=== PATIENT | male | born 1965 | race African-American/Black ===

== ENCOUNTER 2017-02-06 10:38 | Inpatient (IN) ==
[~2017-02-06 10:38] MED LIST: ASPIRIN 325 MG TABLET ONE; ENOXAPARIN 80 MG/0.8 ML SYRINGE SUBCUT ONE; METOPROLOL TARTRATE 5 MG/5 ML VIAL IV ONE; MORPHINE 2 MG/1 ML SYRINGE ONE; NITROGLYCERIN 2% OINT 1 INCH/GM PACK TOP ONE; ONDANSETRON 4 MG/2 ML VIAL ONE; TICAGRELOR 90 MG TABLET ONE
[2017-02-06] MEDS ORDERED: LIDOCAINE 1% 20 ML VIAL ONE (10:41)
[2017-02-06] MEDS ORDERED: HEPARIN/NACL 0.9% 2 UNITS/ML 1,000 ML IV ONE (10:41)
--- NOTE | 2017-02-06 10:41 | Emergency Department Note ---
Nini Mejias Gwan, am scribing for, and in the presence of, Jaime Simmons MD 10:39 . Iris Mejias James D, MD, personally performed the services described in this documentation, ascribed by Pinky Terrazas in my presence, and it is both accurate and complete . Arrival - Arrival Chief Complaint: Chest Pain Stated Complaint: cp Mode of Arrival: Stretcher Source: EMS, Old Records Reviewed, RN Notes Reviewed - History of Present Illness HPI Narrative: Pt is a 51 y/o male who presents to the ED via EMS for further evaluation of chest pain. EMS was called to pt's residence and En Route pt went into Vfib and was shocked once. Initial evaluation by paramedics revealed the patient to be in bigeminy. He subsequently deteriorated to V. fib where he was cardioverted with 200 J. Patient responded well with return to normal sinus rhythm. Patient was awake and alert during exam. Patient stated that his pain began at 0930 and he continued that his sxs worsened and included N/V and diaphoresis. He then said that he has had this pain intermittent for the past 2 weeks and he assumed that it was because of the food he has been eating. Patient has a SHx of 1ppd cigarettes and that he drinks beer and Vodka daily. He denies having a local PCP. He has a significant history of family coronary artery disease. Onset (ago): week(s) Consistency: intermittent Severity: severe Allergies/Adverse Reactions: Allergies Allergy/AdvReac Type Severity Reaction Status Date / Time benzocaine [From Dermacot] Allergy Vomiting Verified 10/28/16 18:51 pyrilamine [From Dermacot] Allergy Vomiting Verified 10/28/16 18:51 zinc oxide [From Dermacot] Allergy Vomiting Verified 10/28/16 18:51 Home Medications: Home Medications Medication Instructions Recorded Confirmed Type Cyclobenzaprine [Flexeril] 10 mg PO TID #21 tablet 07/15/15 Rx HYDROcodone/ACETAMIN 5-325 [Loving 1 tablet PO Q6H #20 tablet 07/15/15 Rx 5-325] Naproxen [Naproxen Tab] 500 mg PO BID W/MEALS #30 tablet 07/15/15 Rx Sulfameth/Trimeth 800-160 Tab 1 tablet PO BID 07/15/15 07/15/15 History [Bactrim DS Tab] Sulfameth/Trimeth 800-160 Tab 1 tablet PO BID #14 tablet 10/28/16 Rx [Bactrim Ds Tab] Review of System - Review of System 12 point system: reviewed and no additional remarkable complaints except as stated - Review of System Constitutional: Absent: chills, fever Eyes: Absent: discharge, pain Head/Ears/Nose/Throat: Absent: earache Cardiovascular: Present: as per HPI, chest pain Gastrointestinal: Present: as per HPI, nausea, vomiting. Absent: diarrhea Medical,Surgical,& Family Hx - Medical History Cardio: History of: Hypertension - Family History Family History: Reports;: Family Heart Disease - Social History Smoking Status: Current every day smoker (1 pack per day) Have you smoked in the last 12 months: Yes Frequency of Alcohol Use: Frequently Type of Drug Use: None Marital Status: Lives With:: Spouse Functional capacity: independent ambulation Exam Physical Examination: GENERAL: This is acutely ill-appearing slightly diaphoretic black male in no apparent distress. VITAL SIGNS: HEENT: Head is normocephalic and atraumatic. Pupils are equally round and reactive to light. Extraocular movement are intact. Oropharynx is benign with moist mucous membranes. NECK: Neck is soft and supple without tenderness. There are no masses. There is no lymphadenopathy. LUNGS: Lungs are clear to auscultation bilaterally. Chest rises symmetrically. There is no chest wall tenderness. CV: Heart is regular rate and rhythm without murmurs, rubs, or gallops. ABDOMEN: Abdomen is soft, non-tender to palpation. There are no abnormal masses palpated. There is no organomegaly. Bowel sounds are present and active. SKIN: Skin is warm and dry. No rash. EXTREMITIES: Patient has full range of motion without tenderness. There is no pedal edema. NEUROLOGIC: Awake, alert, and oriented x4. Cranial nerves II through XII are grossly intact. There are no motorsensory deficits. PSYCHIATRIC: Normal affect. Normal mood. Vital Signs: Vital Signs Temperature 96.3 F L 02/06/17 10:26 Pulse Rate 97 H 02/06/17 10:26 Respiratory Rate 24 02/06/17 10:26 Blood Pressure 190/103 02/06/17 10:26 O2 Sat by Pulse Oximetry 99 02/06/17 10:26 Course Course Narrative: Patient was given metoprolol 5 mg IV, aspirin, Lovenox 70 mg subcu, morphine, Zofran, and Brilinta 180 mg p.o. prior to transport to the [facility]. - Consultations Consultation #1: Discussed with Dr. Natarajan. Patient will be taken emergently to the [facility]. Time: 10:41 Results - EKG EKG results: interpreted by ERMD - Impressions EKG: Normal sinus rhythm with a rate of 94, ST segment elevation in V2 V3 V4 V5 and V6 consistent with large anterior lateral NM. Review of paramedics strips obtained in the field revealed patient had multifocal PVCs quickly followed by Oswaldo colmenares. Patient was cardioverted with 200 J and returned to sinus rhythm. Disposition Clinical Impression: Acute ST elevation myocardial infarction involving left anterior descending coronary artery, Ventricular fibrillation by electrocardiogram Case discussed with: patient Disposition: Still a Patient Condition: Critical Time of Disposition: 10:41
[2017-02-06] MEDS ORDERED: HEPARIN/NACL 0.9% 2 UNITS/ML 500 ML IV ONE (10:42)
[2017-02-06] MEDS ORDERED: MIDAZOLAM 2 MG/2 ML VIAL ONE (10:43)
[2017-02-06] MEDS ORDERED: HYDROmorphone 2 MG/1 ML VIAL ONE (10:43)
[2017-02-06] MEDS ORDERED: ONDANSETRON 4 MG/2 ML VIAL IV STA (10:52)
[2017-02-06] MEDS ORDERED: MORPHINE 2 MG/1 ML SYRINGE IV STA (10:52)
[2017-02-06] MEDS ORDERED: METOPROLOL TARTRATE 5 MG/5 ML VIAL IV STA (10:52)
[2017-02-06] MEDS ORDERED: ASPIRIN 325 MG TABLET PO STA (10:52)
[2017-02-06] MEDS ORDERED: TICAGRELOR 90 MG TABLET PO ONE (10:53)
[2017-02-06] MEDS ORDERED: ENOXAPARIN 80 MG/0.8 ML SYRINGE SUBCUT STA (10:53)
--- NOTE | 2017-02-06 10:57 | EKG Report ---
Stationary ECG Study [facility] ER Test Date: 02/06/2017 10:30:40 AM Pat Name: CRYSTAL JIN Department: Room: C002 Gender: M Immigration Manager: : 1965 Requested by: Jaime Carl Order Number: [id number] Reading MD: JACQUELIN MARCOS Intervals [place] Rate: 94 P: 76 TX: 137 QRS: 123 QRSD: 89 T: 84 QT: 376 QTc: 428 Interpretive Statements SINUS RHYTHM MARKED RIGHT AXIS DEVIATION MODERATE T-WAVE ABNORMALITY, CONSIDER ANTEROLATERAL ISCHEMIA Electronically Signed On 02-06-17 11:59:55 CDT by JACQUELIN MARCOS [email or web address]
[2017-02-06 11:09] LABS: Basophils # 0.1 10*3/uL (0.0-0.2); Basophils % 0.5 % (0.0-0.8); Eosinophils # 0.1 10*3/uL (0.0-0.87); Hemoglobin 14.5 GM/DL (14.0-18.0); Immature Granulocytes % 1.3 %; Immature Granulocytes Absolute 0.16 #; Lymphocytes # 6.6 10*3/uL (1.4-4.0); Lymphocytes % 52.9 % (21.2-54.2); Mean Corpuscular HGB Conc 30.9 GM/DL (32-36); Mean Corpuscular Hemoglobin 24 PG (27-34); Mean Corpuscular Volume 78.2 FL (87-102); Mean Platelet Volume 11.5 FL (9.6-12.0); Monocytes % 7.6 % (1.7-12.7); NRBC # 0.05 10*3/uL; Neutrophils # 4.6 10*3/uL (1.4-7.4); Neutrophils % 36.7 % (38.7-73.9); Platelet Count 242 T/CUMM (130-400); Red Blood Count 6.01 MC/CUMM (3.8-5.5); White Blood Count 12.4 T/CUMM (4-12)
[2017-02-06 11:14] LABS: PT Patient Result 10.8 SECS; Partial Thromboplastin Time 25.8 SECS (0-40)
[2017-02-06 11:22] LABS: Albumin 4.6 G/DL (3.4-5.0); Calcium 9.7 MG/DL (8.5-10.1); Magnesium 2.1 MG/DL (1.8-2.4); Osmolality,Calculated 286.1 MOS/KG (273-304); Potassium 3.5 MMOL/L (3.5-5.1); Total Protein 8.2 G/DL (6.4-8.3)
--- NOTE | 2017-02-06 11:30 | Cardiac Catheterization ---
Date of Procedure:: 02/06/17 Procedure: CLINICAL SUMMARY: The patient presented with chest pain, dyspnea, and syncope/ presyncope with ventricular fibrillation. He underwent emergent defibrillation. His EKG showed changes suggestive of an acute anterior myocardial infarction. He is being taken emergently to cardiac catheterization from the emergency room. PROCEDURES PERFORMED: 1. Right femoral percutaneous arteriotomy 2. Left heart catheterization. 3. Resting hemodynamics. 4. Left ventriculography. 5. Coronary arteriography. 6. Right femoral arteriogram. 7. Angio-Seal closure of the right femoral artery. DESCRIPTION OF PROCEDURE: After obtaining informed consent, the patient was brought to the cardiac catheterization lab where the right groin was prepped and draped in the usual sterile manner. Using IV sedation, local anesthesia, and Modified Seldinger technique, a needle was placed in the right femoral artery and a sheath was positioned without difficulty. A left coronary catheter was advanced over a guidewire under fluoroscopic control to the ascending aorta where angiograms of the left coronary artery were undertaken in multiple views. After adequate angiograms, this catheter was withdrawn and a right coronary catheter was advanced over a guidewire under fluoroscopic control to the ascending aorta with angiograms of the RCA were undertaken in numerous projections. After adequate angiograms, this catheter was removed and a pigtail ventriculographic catheter was advanced over a guidewire under fluoroscopic control to the aortic valve and left ventricular pressures were measured. After adequate pressures were measured, this catheter was used to perform left ventriculography in the STAHL projection. This catheter was then withdrawn under hemodynamic monitoring and removed from the patient. A right femoral arteriogram was performed showing adequate sheath placement for closure device deployment. The sheath was then removed and an Angio-Seal device was used to obtain hemostasis. The patient was transferred back to the room having suffered no immediate complications. HEMODYNAMICS: See the accompanying data sheet. CORONARY ARTERIOGRAPHY: LEFT MAIN: The left main coronary artery is a large caliber vessel, which trifurcates into the left anterior descending and ramus intermedius, and and left circumflex coronary arteries. The left main coronary artery has no significant obstructive disease. LEFT CIRCUMFLEX: The left circumflex coronary artery is a moderate size vessel which gives off a moderate size branching obtuse marginal. The left circumflex and its tributaries are angiographically free of significant obstructive disease. RAMUS INTERMEDIUS: This is a moderate size vessel which courses over the anterolateral wall and is angiographically free of significant obstructive disease. LEFT ANTERIOR DESCENDING: The left anterior descending artery is a moderate size vessel which gives off 2 moderate-sized diagonal branches. The vessel wraps far around the apex. Left anterior descending has mild luminal irregularities but no significant focal obstruction is seen. RIGHT CORONARY ARTERY: The right coronary artery is a moderate size vessel was a posterior descending artery and a small posterolateral branch. The right coronary artery has mild luminal regular is but no significant focal obstructive disease. LEFT VENTRICULOGRAPHY: Left ventricular ejection fraction is estimated at 50-55 %. PERIPHERAL ARTERIOGRAPHY: Right femoral arteriogram shows a normal right iliofemoral artery with adequate sheath placement for closure device deployment. IMPRESSIONS: 1. There is no significant obstructive coronary artery disease seen at this time. 2. Left ventricle systolic function is preserved. 3. Normal right iliofemoral artery with successful and distal closure of this vessel. PLAN: At this point, it does not appear that the patient actually has an acute coronary syndrome. The etiology of his ventricular fibrillation, chest pain, and dyspnea remains unclear. I'm going to try to rule out pulmonary embolus. I will get an echocardiogram to rule out structural cardiac abnormality that might explain his arrhythmia. His labs are still pending. He has been "experimenting" with some medications such as Adderall, Lortab, and alcohol recently. This possible this could play a role in his presentation. I discussed his case with the hospital medicine team to see if they would be willing to admit him to evaluate for other medical issues, while we continue to evaluate his cardiac status. Anesthesia: minimal conscious sedation Surgeon / Physician: Nicola Natarajan Estimated blood loss: minimal Condition: stable Disposition: floor - Medications / Follow-up
[2017-02-06 11:34] LABS: Band Neutrophils 2 % (0-10); Eosinophils 4 % (0-10); Hypochromasia 1+; Lymphocytes 51 % (20-55); Nucleated Red Blood Cells 1 (0-5); Segmented Neutrophils 40 % (50-85); Total Cells Counted 100
[2017-02-06 11:35] LABS: Microcytosis 1+; Ovalocytes Few; Platelet Estimate Adequate
--- NOTE | 2017-02-06 13:51 | EKG Report ---
Stationary ECG Study [facility] Test Date: 02/06/2017 1:51:02 PM Pat Name: CRYSTAL JIN Department: Room: 278 Gender: M Safety Physician: GERARD : 1965 Requested by: Jaime Carl Order Number: [id number] Reading MD: JOSE COSTELLO Intervals [place] Rate: 54 P: 65 MD: 150 QRS: 105 QRSD: 79 T: 78 QT: 438 QTc: 425 Interpretive Statements SINUS BRADYCARDIA MARKED RIGHT AXIS DEVIATION Electronically Signed On 02-06-17 15:16:49 CDT by JOSE COSTELLO [email or web address]
--- NOTE | 2017-02-06 15:28 | Nuclear Medicine Report ---
NM lung scan vent and per Indication: Chest pain and shortness of breath. VENTILATION/PERFUSION LUNG SCAN: Planar imaging of the lungs was obtained after the IV administration of 5 mCi technetium 99m labeled MAA, and aerosol administration of 40 mCi technetium 99m labeled DTPA. Comparison: None. Findings: Imaging limited to anterior, STAHL and [place] views. There are no perfusion defects present in the 3 projections obtained. Impression: Normal VQ scan, with imaging limited to anterior point of view. PROCEDURE INTERPRETED AT [facility] [place] DEPARTMENT OF RADIOLOGY Final Report Signed by: Senthil Galan M.D.
--- NOTE | 2017-02-06 15:31 | XRay Report ---
Referring Physician: Tiffanie Natarajan MD Exam: XR chest post lung scan Date: February 06, 2017 at 2:20 PM Reason: Post lung scan Comparison: None Findings: The cardiac silhouette is normal in size. No focal consolidation, pneumothorax or pleural effusion is identified. No acute osseous process is seen. Impression: No acute cardiopulmonary process is identified. PROCEDURE INTERPRETED AT [facility] DEPARTMENT OF RADIOLOGY Final Report Signed by: Dr. Murali Otero
--- NOTE | 2017-02-06 15:42 | Hospitalist History & Physical ---
Assessment and Plan (1) Emesis, persistent Status: Acute Assessment and plan: Subacute nausea with onset of repetitive emesis 24 hours prior to admission. Associated chest and epigastric pain. Current Visit: Yes History of Present Illness History of present illness: Mr. Hughes is a 51 year old male with a two week history of lower sternal discomfort particularly in the mornings with periods of nausea. Sunday for the first time he had emesis progressing to wretching. Vomiting gave him some relief and did flatus. He had no observed GI bleeding though he has often had to use over the counter acid suppressants. He has noted some reduction in exercise tolerance without wheezing or pleurisy, cough, fever, or chills. He works at a [employer] with a commute of about 20 miles per day. He drives a truck on site. Her reports some cramping in his left leg but no observed swelling. This morning the patient was unable to stop vomiting; EMS was contacted. He had chest pain after emesis and received a sublingual nitroglycerin. Shortly thereafter he became unresponsive and was felt to be in a ventricular rhythm with cardioversion undertaken. In ER had S1S2S3 pattern with clockwise precordial rotation and possible RV strain pattern. At cardiac catheterization he demonstrated no coronary artery disease. V/Q scan was undertaken and report is pending. The pattern suggests a NTG hypotensive/bradycardic response, either due to volume contraction, intrinsic right sided disease, agree need to exclude PTE syndrome as source for extreme RV volume sensitivity. Home Medications Medication Instructions Recorded Confirmed Type No Known Home Medications [No 02/06/17 02/06/17 History Known Home Medications] Allergies Allergy/AdvReac Type Severity Reaction Status Date / Time benzocaine [From Dermacot] Allergy Vomiting Verified 10/28/16 18:51 pyrilamine [From Dermacot] Allergy Vomiting Verified 10/28/16 18:51 zinc oxide [From Dermacot] Allergy Vomiting Verified 10/28/16 18:51 Medical,Surgical,& Family Hx - Surgical History HEENT Surgeries: Surgical HX of: Tonsilectomy & Adenoidectomy Orthopedic Surgeries: Surgical HX of;: Orthopedic Surgery (knee arthroscopic (3) , left shoulder repair), Spinal Surgery (lumbar disc) Additional Surgical History: nasal fracture - Family History Family History: Reports;: Family Heart Disease - Social History Smoking Status: Current every day smoker (1/2 to 1 ppd) Frequency of Alcohol Use: Frequently (10 to 14 beers per week with vodka) Type of Drug Use: None - Constitutional Constitutional: Absent: fever(s), weight loss - Cardiovascular Cardiovascular: Present: chest pain with activity, dyspnea on exertion. Absent : edema, orthopnea, palpitations - Respiratory Respiratory: Absent: hemoptysis, wheezing - Gastrointestinal Gastrointestinal: Present: abdominal pain, heartburn, nausea, vomiting. Absent : bloating, change in bowel habits, coffee ground emesis, diarrhea, dysphagia, hematemesis, hematochezia, melena - Genitourinary Genitourinary: Absent: hematuria - Neurological Neurological: Absent: convulsions, syncope Exam - Constitutional Vitals: Period Temp Pulse Resp BP Sys/Yusuf Pulse Ox Last 24 Hr 96.3 F-97.9 F 51-97 17-24 118-190/71-103 99-100 General appearance: normal weight, no acute distress - Neck Neck exam: Absent: lymphadenopathy, thyromegaly - Respiratory Respiratory exam: Present: clear to auscultation bilaterally. Absent: rales, rhonchi, wheezes - Cardiovascular Cardiovascular exam: Present: regular rate and rhythm, other (soft RV impulse suggested). Absent: carotid bruit, diastolic murmur, JVD, systolic murmur - GI/Abdominal GI/Abdominal exam: Present: normal bowel sounds, tenderness (epigastric diffusely). Absent: distended, organomegaly - Extremities Exam Extremities exam: Absent: edema - Neurological Exam Neurological exam: Present: alert, oriented X3 Results - Labs CBC & BMP: 02/06/17 10:39 02/06/17 10:39 Labs: MCV 78 globulin 3.1 cTnI 0 rise to 1.39 - Impressions sinus rhythm indeterminate axis with clockwise precordial rotation and right precordial T wave changes. - Diagnostic Findings Procedure: Chest x-ray: image reviewed by me (normal appearance)
[2017-02-06] MEDS ORDERED: ZALEPLON 5 MG CAPSULE PO PRN (16:02)
[2017-02-06] MEDS ORDERED: MAGNESIUM HYDROXIDE SUSP 30 ML UDCUP PO PRN (16:03)
[2017-02-06] MEDS ORDERED: ONDANSETRON 4 MG/2 ML VIAL IV PRN (16:04)
--- NOTE | 2017-02-06 17:45 | EKG Report ---
Stationary ECG Study [facility] Test Date: 02/06/2017 5:45:16 PM Pat Name: CRYSTAL JIN Department: Room: 278 Gender: M Manager Domestic: JAIR : 1965 Requested by: Jaime Carl Order Number: [id number] Reading MD: JOSE COSTELLO Intervals [place] Rate: 63 P: 63 [place]: 145 QRS: 102 QRSD: 86 T: 81 QT: 397 QTc: 404 Interpretive Statements SINUS RHYTHM MARKED RIGHT AXIS DEVIATION MODERATE T-WAVE ABNORMALITY, CONSIDER ANTERIOR ISCHEMIA Electronically Signed On 02-07-17 17:56:29 CDT by JOSE COSTELLO [email or web address]
[2017-02-06] MEDS: DEXT 5% NACL 0.9% KCL 20 MEQ 20 MEQ/1,000 ML BAG IV SCH (17:53)
[2017-02-06 18:10] LABS: Barbiturates Screen,Urine Negative (Negative); Benzodiazepines Screen,Urine Positive (Negative); Cannabinoid Screen,Urine Negative (Negative); Opiate Screen,Urine Positive (Negative); Phencyclidine Screen,Urine Negative (Negative)
[2017-02-06] MEDS: PANTOPRAZOLE 40 MG TABLET PO SCH (20:44)
[2017-02-07] MEDS: DEXT 5% NACL 0.9% KCL 20 MEQ 20 MEQ/1,000 ML BAG IV SCH ×5 (01:27→19:00)
[2017-02-07 02:46] LABS: Basophils % 0.3 % (0.0-0.8); Eosinophils # 0.1 10*3/uL (0.0-0.87); Eosinophils % 1.4 % (0.00-10.9); Immature Granulocytes % 0.3 %; Immature Granulocytes Absolute 0.02 #; Lymphocytes # 2.4 10*3/uL (1.4-4.0); Mean Corpuscular HGB Conc 31.6 GM/DL (32-36); Mean Corpuscular Hemoglobin 24 PG (27-34); Mean Corpuscular Volume 76.5 FL (87-102); Mean Platelet Volume 10.9 FL (9.6-12.0); Monocytes # 0.5 10*3/uL (0.11-0.8); Monocytes % 7.2 % (1.7-12.7); Neutrophils # 4.3 10*3/uL (1.4-7.4); Neutrophils % 58.8 % (38.7-73.9); Platelet Count 187 T/CUMM (130-400); Red Blood Count 4.97 MC/CUMM (3.8-5.5); Red Cell Distribution Width 14.3 % (9.3-17.3); White Blood Count 7.4 T/CUMM (4-12)
[2017-02-07 03:13] LABS: Calcium 8.4 MG/DL (8.5-10.1); Magnesium 1.9 MG/DL (1.8-2.4); Osmolality,Calculated 286.1 MOS/KG (273-304); Potassium 3.9 MMOL/L (3.5-5.1)
--- NOTE | 2017-02-07 07:38 | Hospitalist Progress Note ---
Assessment and Plan (1) Emesis, persistent Status: Acute Assessment and plan: Subacute nausea with onset of repetitive emesis 24 hours prior to admission. Associated chest and epigastric pain. Current Visit: Yes (2) Cardiac arrest Status: Acute Assessment and plan: Negative coronary angiography 02/06 Current Visit: Yes Hospitalist: Subjective Interval history: 51 yo male with abdominal pain with nausea progressing to severe pain with repetitive emesis. Initial concerns regarding cardiac ischemia lead to CCA showing no obstructive coronary disease. He did sustain a rise in cTnI level after possible NTG induced cardiac arrest with resuscitation. ECG indeterminate axis with possible RV strain/hypertrophy pattern, V/Q lung scan is read as limited but negative. Echocardiogram for pulmonary hypertension is pending. Vitals stable over night with sinus rhythm. No pain this morning no nausea. Will go ahead with gall bladder ultrasound to begin GI evaluation. Exam - Constitutional Vitals: Period Temp Pulse Resp BP Sys/Yusuf Pulse Ox Last 24 Hr 96.3 F-98.4 F 51-97 17-24 118-190/69-103 97-100 General appearance: normal weight, no acute distress - Respiratory Respiratory exam: Present: clear to auscultation bilaterally - Cardiovascular Cardiovascular exam: Present: regular rate and rhythm - GI/Abdominal GI/Abdominal exam: Present: normal bowel sounds. Absent: distended, organomegaly - Extremities Exam Extremities exam: Absent: edema - Neurological Exam Neurological exam: Present: alert, oriented X3 Results - Labs CBC & BMP: 02/07/17 02:28 02/07/17 02:28 Labs: cTnI 2.49
--- NOTE | 2017-02-07 09:24 | Ultrasound Report ---
Exam: US gallbladder Date:02/07/2017 7:32 AM Indication: Abdominal pain and emesis Comparison: None Findings: Liver: 19.2 cm. No focal abnormalities are present. The hepatic and portal veins are patent Gallbladder: Slightly thickened wall with no obvious stones present. No pericholecystic fluid. CBD: 3 mm Pancreas: Normal size shape and configuration on the portion visualized Kidneys Right kidney: 10.9 x 4 x 5.9 cm with a 14 x 12 x 14 mm cyst in the upper pole the right kidney. No obstructive uropathy present. Ascites: None The IVC is patent Impression: 1. Minimal thickening of the gallbladder wall without pericholecystic fluid or obvious stones or debris. Ultrasound images were stored and captured PROCEDURE INTERPRETED AT [facility] DEPARTMENT OF RADIOLOGY Final Report Signed by: Dr. Kemar Hope
[2017-02-07] MEDS: ASPIRIN EC 81 MG TABLET PO SCH (09:29)
[2017-02-07] MEDS: PANTOPRAZOLE 40 MG TABLET PO SCH ×2 (09:29→20:51)
--- NOTE | 2017-02-07 10:23 | Cardiology Progress Note ---
<Lidia Mckoy E - Last Filed: 02/07/17 10:25> Assessment and Plan - Time spent with patient Time spent with patient: Greater than 30 minutes Time spent discussing smoking cessation with patient: more than 10 minutes (1) Cardiac arrest Status: Resolved Current Visit: Yes (2) Emesis, persistent Status: Acute Current Visit: Yes (3) Ventricular fibrillation by electrocardiogram Status: Resolved Current Visit: Yes Cardiology - PN: Subj Interval history: Sales Advisory Manager: Dr. Natarajan Patient presented to the emergency department at [facility], brought by [facility], after experiencing reported V. fib, possibly torsades, requiring defibrillation. He was taken emergently to the cardiac catheterization lab by Dr. Natarajan who performed heart cath. No evidence of obstructive disease noted. Ejection fraction 50-55% without significant valvular abnormality. Echocardiogram is unremarkable. Greater than 45 minutes was spent today discussing the events of the day with Mr. Hughes and his family. Patient was not feeling well on Sunday when he summoned EMS. He simply states he felt very weak and as if he was going to pass out. He did not have chest pain, heaviness, tightness or heart racing. He simply felt unwell. Patient acknowledges he had used 30 mg of Adderall approximately 2-3 days prior to the event. He uses Lortab for chronic back pain and had been using routinely. Patient acknowledges that he drinks several beers and usually a few shots of whiskey when he gets off work each evening. He tells me he had not been drinking at least 6-8 hours prior to this event. His drug screen did not reveal cocaine, methamphetamine or marijuana. Denies use of spice. Patient denies a family history of sudden cardiac . His mother's side of the family does have, what sounds like CAD. He denies a history of known dysrhythmias in his family including Brugada syndrome. Patient has had recent nausea and vomiting with abdominal discomfort. He has never been diagnosed with pancreatitis that he is aware of. He admits to not routinely following with a primary care provider but acknowledges that he is now ready to do so. At this point, I am requesting the actual rhythm strips from [facility] to evaluate the rhythm. If this was truly ventricular fibrillation or torsades, ventricular tachycardia, patient may become a candidate for an ICD. Again, we will await the rhythm strips from [facility]. He had no arrhythmia since he has been here. When EKG does reveal a somewhat abnormal rhythm which could be a Brugada syndrome. Conceivably, he could have a QTc prolongation problem though the EKG is borderline at this point. I briefly discussed this with Dr. Tavares who reviewed the EKG strips we have here this morning. We will await rhythm strips from [facility]. I will add LFTs, amylase and lipase for evaluation. Reordering a troponin and expect this should be trending down. His potassium is being repleted this morning. Will follow his electrolytes. I will give an additional dose of magnesium today as his magnesium level is 1.9. Patient may eventually need workup to exclude myocarditis, possibly a cardiac MRI. I will formally consult Dr. Tavares, asphalt plant worker to assist with this patient's care. 1. SUDDEN CARDIAC RELATED TO DYSRHYTHMIA - see plan of care listed above. 2. EMESIS - continue current plan of care. Exam (Progress Note) - Constitutional Vitals: Period Temp Pulse Resp BP Sys/Yusuf Pulse Ox Last 24 Hr 97.2 F-98.4 F 51-67 17-20 118-160/69-85 97-100 Exam: General: [Appears well with no apparent distress.] [Pleasant and cooperative. ] [Appears comfortable.] HEENT: [PERRL, normocephalic, atraumatic. Mucous membranes moist. No jaundice noted. Conjunctiva moist and clear, sclerae anicteric] Neck: No JVD/HJR, no thyromegaly or lymphadenopathy noted. No carotid bruit appreciated Cardiac: [Regular rate and rhythm.] [No murmur rub or gallop.] Lungs: [Clear to auscultation without accessory muscle use to assist the respiratory pattern.] Abdomen: Soft, bowel sounds normoactive. Nontender and nondistended. No abdominal bruit or thrill noted. No masses noted. Musculoskeletal: No fluid collection. Decreased range of motion is noted. Extremities: Right groin soft, free of hematoma or bruit. No clubbing, cyanosis noted. [ No edema noted.] Upper extremity pulses 2+. Lower extremity pulses 2+. Capillary refill less than 3 seconds. Skin: No unusual lesions or rashes. No skin breakdown appreciated. Neuro: Awake, alert and oriented 3. Moves all extremities well without hemiparesis or paralysis. No essential tremor is appreciated. Result/EKG - Labs CBC & BMP: 02/07/17 02:28 02/07/17 02:28 Lab Results: I have reviewed the past 24 hour labs Labs: Laboratory Results - last 24 hr 02/06/17 02/06/17 02/06/17 13:42 16:40 Unknown WBC RBC Hgb Hct MCV MCH MCHC RDW Plt Count MPV Neut % (Auto) Lymph % (Auto) Rhea % (Auto) Eos % (Auto) Baso % (Auto) Neut # (Auto) Lymph # (Auto) Rhea # (Auto) Eos # (Auto) Baso # (Auto) Immature Gran % Nucleated RBC % Immature Gran # Nucleated RBCs # Sodium Potassium Chloride Carbon Dioxide Anion Gap BUN Creatinine GFR Calculation BUN/Creatinine Ratio Glucose Calculated Osmolality Calcium Magnesium Troponin I 1.390 H D 2.490 H D Urine Opiates Screen Positive H Ur Barbiturates Screen Negative Ur Phencyclidine Scrn Negative U Amphetamine/Methamph Negative U Benzodiazepines Scrn Positive H U Cocaine Metab Screen Negative U Cannabinoids Screen Negative 02/07/17 02/07/17 02:28 02:28 WBC 7.4 D RBC 4.97 Hgb 12.0 L D Hct 38.0 L MCV 76.5 L MCH 24 L MCHC 31.6 L RDW 14.3 Plt Count 187 D MPV 10.9 Neut % (Auto) 58.8 Lymph % (Auto) 32.0 Rhea % (Auto) 7.2 Eos % (Auto) 1.4 Baso % (Auto) 0.3 Neut # (Auto) 4.3 Lymph # (Auto) 2.4 Rhea # (Auto) 0.5 Eos # (Auto) 0.1 Baso # (Auto) 0.0 Immature Gran % 0.3 Nucleated RBC % 0.0 Immature Gran # 0.02 Nucleated RBCs # 0.00 Sodium 142 Potassium 3.9 Chloride 108 H Carbon Dioxide 24 Anion Gap 13.9 BUN 17 Creatinine 1.50 H GFR Calculation 68 BUN/Creatinine Ratio 11.00 Glucose 136 H Calculated Osmolality 286.1 Calcium 8.4 L Magnesium 1.9 Troponin I Urine Opiates Screen Ur Barbiturates Screen Ur Phencyclidine Scrn U Amphetamine/Methamph U Benzodiazepines Scrn U Cocaine Metab Screen U Cannabinoids Screen - Diagnostic Findings Procedure: Chest x-ray: report reviewed by me, Ultrasound: report reviewed by me - EKG EKG results: interpreted by me EKG shows: sinus rhythm <Nicola Natarajan - Last Filed: 02/07/17 17:05> Cardiology - PN: Subj Interval history: I have seen, interviewed, examined the patient and reviewed his chart and discussed the case with the mid-level provider and agree with the plan as outlined in the note. With the patient's arrhythmia without any clear-cut coronary artery disease, I'm going to ask Dr. Tavares for a consultation. In the meantime, I think it would be appropriate to treat the patient with a calcium channel nitza in case this was spasm, and aspirin in case this was a thrombotic event. Exam (Progress Note) - Constitutional Vitals: Period Temp Pulse Resp BP Sys/Yusuf Pulse Ox Last 24 Hr 97.2 F-98.9 F 52-67 14-20 126-160/69-85 97-100 Result/EKG - Labs CBC & BMP: 02/07/17 02:28 02/07/17 02:28 Labs: Laboratory Results - last 24 hr 02/06/17 02/06/17 02/07/17 16:40 Unknown 02:28 WBC 7.4 D RBC 4.97 Hgb 12.0 L D Hct 38.0 L MCV 76.5 L MCH 24 L MCHC 31.6 L RDW 14.3 Plt Count 187 D MPV 10.9 Neut % (Auto) 58.8 Lymph % (Auto) 32.0 Rhea % (Auto) 7.2 Eos % (Auto) 1.4 Baso % (Auto) 0.3 Neut # (Auto) 4.3 Lymph # (Auto) 2.4 Rhea # (Auto) 0.5 Eos # (Auto) 0.1 Baso # (Auto) 0.0 Immature Gran % 0.3 Nucleated RBC % 0.0 Immature Gran # 0.02 Nucleated RBCs # 0.00 Sodium Potassium Chloride Carbon Dioxide Anion Gap BUN Creatinine GFR Calculation BUN/Creatinine Ratio Glucose Calculated Osmolality Calcium Magnesium Total Bilirubin Direct Bilirubin Indirect Bilirubin AST ALT Alkaline Phosphatase Total Creatine Kinase CK-MB (CK-2) Troponin I 2.490 H D Total Protein Albumin Amylase Lipase Urine Opiates Screen Positive H Ur Barbiturates Screen Negative Ur Phencyclidine Scrn Negative U Amphetamine/Methamph Negative U Benzodiazepines Scrn Positive H U Cocaine Metab Screen Negative U Cannabinoids Screen Negative 02/07/17 02/07/17 02/07/17 02:28 10:53 10:53 WBC RBC Hgb Hct MCV MCH MCHC RDW Plt Count MPV Neut % (Auto) Lymph % (Auto) Rhea % (Auto) Eos % (Auto) Baso % (Auto) Neut # (Auto) Lymph # (Auto) Rhea # (Auto) Eos # (Auto) Baso # (Auto) Immature Gran % Nucleated RBC % Immature Gran # Nucleated RBCs # Sodium 142 Potassium 3.9 Chloride 108 H Carbon Dioxide 24 Anion Gap 13.9 BUN 17 Creatinine 1.50 H GFR Calculation 68 BUN/Creatinine Ratio 11.00 Glucose 136 H Calculated Osmolality 286.1 Calcium 8.4 L Magnesium 1.9 Total Bilirubin 0.70 Direct Bilirubin 0.10 Indirect Bilirubin 0.6 AST 26 ALT 32 Alkaline Phosphatase 70 Total Creatine Kinase 563 H CK-MB (CK-2) 3.3 Troponin I 0.254 H D Total Protein 7.3 Albumin 3.8 Amylase 145 H Lipase 154.0 Urine Opiates Screen Ur Barbiturates Screen Ur Phencyclidine Scrn U Amphetamine/Methamph U Benzodiazepines Scrn U Cocaine Metab Screen U Cannabinoids Screen
[2017-02-07] MEDS ORDERED: MAGNESIUM SULF RIDER 2 GM in PREMIX 1 EACH IV ONE (10:27)
[2017-02-07 11:33] LABS: Troponin I Only 0.254 NG/ML (0.00-0.045)
[2017-02-07 11:36] LABS: Albumin 3.8 G/DL (3.4-5.0); Bilirubin,Direct 0.1 MG/DL (0.0-0.20); Bilirubin,Indirect 0.6 MG/DL (0.0-1.0); Bilirubin,Total 0.7 MG/DL (0.2-1.0); Total Protein 7.3 G/DL (6.4-8.3)
--- NOTE | 2017-02-07 15:32 | ECHO Report ---
Stanley Hughes Exam Date: 02/07/2017 09:23 Referring Physician: Technologist: Alicia Alcazar RDCS Age: 51 Ht (in): 68 Wt (lb): 165 Gender: M Exam Location: [facility] Echo Indications: Chest pain, unspecified, Dyspnea, unspecified, Nicotine dependence, cigarettes, uncomplicated BP: 138 / 76 HR: 53 Rhythm: Sinus Technical Quality: IMPRESSIONS Normal left ventricular cavity size. Left ventricular ejection fraction is estimated at 55 %. The right ventricle is normal in size and function. The right atrium is normal in size. The left atrium is normal in size. Morphologically normal mitral valve. Trace mitral valve regurgitation. Trileaflet aortic valve. No aortic valve regurgitation. Moderate tricuspid valve regurgitation. PAP45 -50 mmHG. Pulmonic valve not well visualized. Normal pericardium without effusion. Normal ascending aorta dimension. MEASUREMENTS (Male / Female) Normal Values 2D ECHO LV Diastolic Diameter PLAX 4.8 cm 4.2 - 5.9 / 3.9 - 5.3 cm LV Systolic Diameter PLAX 3.3 cm LV Fractional Shortening PLAX 31.4 % IVS Diastolic Thickness 0.9 cm 0.6 - 1.0 / 0.6 - 0.9 cm LVPW Diastolic Thickness 0.9 cm 0.6 - 1.0 / 0.6 - 0.9 cm RV Internal Dim ED PLAX 3.5 cm Aortic Root Diameter 3.2 cm LA Systolic Diameter LX 3.3 cm 3.0 - 4.0 / 2.7 - 3.8 cm DOPPLER TR Peak Velocity 330.0 cm/s TR Peak Gradient 43.6 mmHg FINDINGS Left Ventricle Normal left ventricular cavity size. Normal left ventricular wall thickness. Left ventricular ejection fraction is estimated at 55 %. Right Ventricle The right ventricle is normal in size and function. Right Atrium The right atrium is normal in size. Left Atrium The left atrium is normal in size. Mitral Valve Morphologically normal mitral valve. Trace mitral valve regurgitation. Aortic Valve Trileaflet aortic valve. No aortic valve regurgitation. Tricuspid Valve Morphologically normal tricuspid valve. Moderate tricuspid valve regurgitation. PAP45 -50 mmHG. Pulmonic Valve Pulmonic valve not well visualized. Pericardium Normal pericardium without effusion. Aorta Normal ascending aorta dimension. Brent Tariq (Electronically Signed) Final Date: 07 February 2017 15:31
[2017-02-08] MEDS: DEXT 5% NACL 0.9% KCL 20 MEQ 20 MEQ/1,000 ML BAG IV SCH ×5 (02:43→23:26)
[2017-02-08 04:30] LABS: Basophils % 0.3 % (0.0-0.8); Eosinophils # 0.1 10*3/uL (0.0-0.87); Eosinophils % 1.7 % (0.00-10.9); Hematocrit 38.2 VOL% (42.0-52.0); Immature Granulocytes % 0.5 %; Immature Granulocytes Absolute 0.03 #; Lymphocytes # 2.5 10*3/uL (1.4-4.0); Lymphocytes % 39.9 % (21.2-54.2); Mean Corpuscular HGB Conc 31.4 GM/DL (32-36); Mean Corpuscular Hemoglobin 24 PG (27-34); Mean Corpuscular Volume 77.5 FL (87-102); Mean Platelet Volume 11.4 FL (9.6-12.0); Monocytes # 0.5 10*3/uL (0.11-0.8); Monocytes % 7.1 % (1.7-12.7); Neutrophils # 3.2 10*3/uL (1.4-7.4); Neutrophils % 50.5 % (38.7-73.9); Platelet Count 179 T/CUMM (130-400); Red Blood Count 4.93 MC/CUMM (3.8-5.5); Red Cell Distribution Width 14.3 % (9.3-17.3); White Blood Count 6.3 T/CUMM (4-12)
[2017-02-08 04:53] LABS: Calcium 8.5 MG/DL (8.5-10.1)
[2017-02-08 04:54] LABS: Potassium 4.1 MMOL/L (3.5-5.1)
--- NOTE | 2017-02-08 07:56 | Hospitalist Progress Note ---
Assessment and Plan (1) Emesis, persistent Status: Acute Assessment and plan: Subacute nausea with onset of repetitive emesis 24 hours prior to admission. Associated chest and epigastric pain. Gallbladder ultrasound is unremarkable. Symptoms have not recurred during hospital stay. Current Visit: Yes (2) Cardiac arrest Status: Acute Assessment and plan: Negative coronary angiography 02/06. Echocardiogram demonstrates a peak tricuspid velocity of 3.3 m/s consistent with moderate pulmonary hypertension. Proximity of the event to the use of sublingual nitroglycerin raises the possibility of a nitroglycerin hypotensive bradycardic response with cardiac arrest. Risk of this is heightened by his previous anorexia, nausea and intense vomiting with potential volume contraction prior to the event. Current Visit: Yes Hospitalist: Subjective Interval history: 52-year-old male with abdominal pain and nausea progressing to severe pain in the abdomen with repetitive emesis EM S was called and the patient received a sublingual nitroglycerin followed shortly thereafter by some type of cardiac arrest. It is described as being ventricular fibrillation. However we have not as near as I can tell been able to obtain the actual strips. He received DC cardioversion was transported to the emergency room. He has an abnormal EKG he underwent cardiac catheterization demonstrating patent coronary arteries. His cardiac troponins did rise postevent. His EKG shows a sinus rhythm with stable rhythm throughout the stay in addition he has extreme left axis deviation of her extreme right axis deviation with clockwise precordial rotation and a possible right ventricular strain pattern over the right precordial lead. His echocardiogram shows preserved LV function with moderate pulmonary hypertension (estimated pressure of 55-60 mmHg). His gallbladder ultrasound was unremarkable and he has had no further abdominal pain or emesis during the hospital stay. He is being consult with Dr. Colindres regarding disposition. Exam - Constitutional Vitals: Period Temp Pulse Resp BP Sys/Yusuf Pulse Ox Last 24 Hr 97.3 F-98.9 F 52-68 14-20 126-143/77-103 96-100 General appearance: normal weight, no acute distress - Respiratory Respiratory exam: Present: clear to auscultation bilaterally. Absent: rales, rhonchi, wheezes - Cardiovascular Cardiovascular exam: Present: regular rate and rhythm - GI/Abdominal GI/Abdominal exam: Present: normal bowel sounds. Absent: distended, organomegaly, tenderness - Extremities Exam Extremities exam: Absent: edema - Neurological Exam Neurological exam: Present: alert, oriented X3 Results - Labs CBC & BMP: 02/08/17 03:16 02/08/17 03:16
[2017-02-08] MEDS: PANTOPRAZOLE 40 MG TABLET PO SCH ×2 (09:03→20:53)
[2017-02-08] MEDS: ASPIRIN EC 81 MG TABLET PO SCH (09:03)
--- NOTE | 2017-02-08 10:10 | Electrophysiology Consultation ---
History of Present Illness - Data of Consult Patient: new to practice Consult date: 02/08/17 Requesting Physician: Lidia Mckoy - Consult Narrative Reason for consult: VF History of present illness: Mr. Hughes is a 52 year old black male, who was seen by Dr. Natarajan during his hospital stay. History of low back pain, status post surgery. He works a demanding physical job in the [employer]. He smokes approximately a pack a day and there was a concern that he may also use some synthetic marijuana substitute. He started feeling unwell approximately 2 weeks ago, with intermittent chest discomfort. His chronic low back pain also acted up and he took an pill of Adderall to improve his pain. The chest pain worsened. He also had nausea vomiting. This happened at rest and since the pain did not resolve, he called ambulance. Initially, ventricular bigeminy was noted, he was given nitroglycerin, which improved the pain but then he developed polymorphic VT/V. fib per ambulance tracing and he was promptly defibrillated. He recovered consciousness. Cardiac catheterization showed no significant CAD, echo showed preserved ventricular function, no significant valvular abnormalities. Labs were unremarkable, he tested positive for benzos and opioids, the timing of the sample is uncertain whether it was done after he got medications from the ambulance in the ER. EKG initially showed anteroseptal repolarization changes, with borderline elevation and T-wave abnormalities, some of them were suggestive of atypical Brugada, later on, he had some peaked T waves, without significant QTc prolongation and electrolytes changes. He had borderline elevation of cardiac biomarkers. Since admission, he is feeling better, no chest pain and no significant arrhythmia. He has 4 sisters, none of them had cardiac issues. Family history is positive for CAD at mid and later age, he does not recall any family members dying suddenly at young or middle-aged. CC: Nicola Natarajan MD - Home Medications and Allergies Home Medications: Home Medications Medication Instructions Recorded Confirmed Type No Known Home Medications [No 02/06/17 02/06/17 History Known Home Medications] Allergies/Adverse Reactions: Allergies Allergy/AdvReac Type Severity Reaction Status Date / Time benzocaine [From Dermacot] Allergy Vomiting Verified 10/28/16 18:51 pyrilamine [From Dermacot] Allergy Vomiting Verified 10/28/16 18:51 zinc oxide [From Dermacot] Allergy Vomiting Verified 10/28/16 18:51 Medical,Surgical,& Family Hx - Medical History Cardio: History of: Hypertension - Surgical History Cardiac Surgeries: Sugical HX of: Cardiac Catheterization (02/06/17) HEENT Surgeries: Surgical HX of: Tonsilectomy & Adenoidectomy Orthopedic Surgeries: Surgical HX of;: Orthopedic Surgery (knee arthroscopic (3) , left shoulder repair), Spinal Surgery (lumbar disc) - Family History Family History: Reports;: Family Heart Disease - Social History Smoking Status: Current every day smoker Frequency of Alcohol Use: Frequently (10 to 14 beers per week with vodka) Type of Drug Use: None 12 point system: reviewed and no additional remarkable complaints except as stated Exam - Constitutional Vitals: Period Temp Pulse Resp BP Sys/Yusuf Pulse Ox Last 24 Hr 97.3 F-98.9 F 52-68 14-20 125-143/77-103 96-100 General appearance: normal weight, no acute distress - Head Head exam: Present: normal inspection, normocephalic - Eye Eye exam: Absent: conjunctival injection Pupils: Absent: dilated - ENT ENT exam: Present: normal external ear exam - Neck Neck exam: Present: normal inspection. Absent: tenderness, thyromegaly - Respiratory Respiratory exam: Present: clear to auscultation bilaterally. Absent: chest wall tenderness - Cardiovascular Cardiovascular exam: Present: regular rate and rhythm. Absent: gallop - GI/Abdominal GI/Abdominal exam: Present: normal bowel sounds, soft. Absent: distended - Extremities Exam Extremities exam: Present: normal inspection, normal capillary refill. Absent: edema - Back Exam Back exam: Present: normal inspection - Neurological Exam Neurological exam: Present: alert, oriented X3 - Psychiatric Psychiatric exam: Present: normal affect, normal mood - Skin Skin exam: Present: normal color, warm. Absent: cyanosis Results - Labs CBC & BMP: 02/08/17 03:16 02/08/17 03:16 Lab Results: I have reviewed the past 24 hour labs Assessment and Plan (1) Cardiac arrest Status: Acute Assessment and plan: 52-year-old black male, aborted sudden cardiac due to PVT/VF. Contributing factors may have been coronary spasm, ischemia/reperfusion, Adderall, or drug abuse, which did not show up on the standard drug screen. Post event EKG is still showed persistent repolarization changes, in the anteroseptal region, not typical for Brugada or long QT. Clinical presentation does not suggest myocarditis. -Sudden cardiac due to PVT/VF. He will need a defibrillator implant for secondary prevention, as there is no clear fully reversible etiology. We will need to screen him for genetic arrhythmia syndromes, which may help with family screening if positive. This would not affect the need for a defibrillator in his case. -He will need stress test to assess QTC changes with exercise. He will also need a procainamide challenge. -The most likely etiology is coronary vasospasm. Discussed in length to avoid smoking and drugs, including taking non-prescribed meds such as Adderall. Cardiac Rehab consult. -Start Imdur 30 mg daily, Cardizem CD 120 mg daily. Continue aspirin 81 mg daily -Check lipids, hemoglobin A1c. Blood sugars are mildly elevated since admission. -When feels fine, he may go home with a LifeVest, plan to do these procedures as an outpatient, then we can plan for defibrillator implant. Current Visit: Yes
[2017-02-08] MEDS: ISOSORBIDE MONONITRATE 30 MG TABLET PO SCH (11:29)
[2017-02-08] MEDS: DILTIAZEM CD 120 MG CAPSULE PO SCH (11:36)
--- NOTE | 2017-02-08 12:09 | Cardiology Progress Note ---
Assessment and Plan - Time spent with patient Time spent with patient: Greater than 30 minutes (1) Cardiac arrest Status: Resolved Current Visit: Yes (2) Emesis, persistent Status: Resolved Current Visit: Yes (3) Ventricular fibrillation by electrocardiogram Status: Resolved Current Visit: Yes (4) Sudden cardiac Status: Resolved Current Visit: Yes Cardiology - PN: Subj Interval history: Mr. Hughes has done well overnight. We did receive the telemetry strips identifying polymorphic ventricular tachycardia/V. fib causing sudden cardiac . Dr. Tavares has seen the patient this morning and we appreciate his assistance. Patient denies chest pain, heaviness or tightness. At this point, patient is stable for discharge when the attending is ready. We are having him fitted for LifeVest today. He will need an outpatient stress test (treadmill only) to assess his QTc interval during exercise. We will arrange for this to take place at [facility] in the next week. Patient will need a defibrillator and this will also take place in the next few weeks. Again, patient will be discharged home with a LifeVest in the meantime. Prior to ICD, patient may require procainamide challenge. He has been counseled regarding cessation of any illicit drugs, tobacco or non- prescribed medications. He will be given a follow-up appointment with Dr. Tavares in approximately 1 week after stress test. Patient will be given a follow-up appointment with Dr. Natarajan as needed. CARDIAC DISCHARGE MEDICATIONS INCLUDE: ASA 81mg orally daily Imdur 30mg orally daily Diltiazem CD 120mg orally daily Exam (Progress Note) - Constitutional Vitals: Period Temp Pulse Resp BP Sys/Yusuf Pulse Ox Last 24 Hr 97.3 F-98.9 F 53-68 14-20 125-143/79-103 96-100 Exam: General: [Appears well with no apparent distress.] [Pleasant and cooperative. ] [Appears comfortable.] HEENT: [PERRL, normocephalic, atraumatic. Mucous membranes moist. No jaundice noted. Conjunctiva moist and clear, sclerae anicteric] Neck: No JVD/HJR, no thyromegaly or lymphadenopathy noted. No carotid bruit appreciated Cardiac: [Regular rate and rhythm.] [No murmur rub or gallop.] Lungs: [Clear to auscultation without accessory muscle use to assist the respiratory pattern.] Abdomen: Soft, bowel sounds normoactive. Nontender and nondistended. No abdominal bruit or thrill noted. No masses noted. Musculoskeletal: No fluid collection. Decreased range of motion is noted. Extremities: Right groin soft, free of hematoma or bruit. No clubbing, cyanosis noted. [ No edema noted.] Upper extremity pulses 2+. Lower extremity pulses 2+. Capillary refill less than 3 seconds. Skin: No unusual lesions or rashes. No skin breakdown appreciated. Neuro: Awake, alert and oriented 3. Moves all extremities well without hemiparesis or paralysis. No essential tremor is appreciated. Result/EKG - Labs CBC & BMP: 02/08/17 03:16 02/08/17 03:16 Lab Results: I have reviewed the past 24 hour labs Labs: Laboratory Results - last 24 hr 02/08/17 02/08/17 03:16 03:16 WBC 6.3 RBC 4.93 Hgb 12.0 L Hct 38.2 L MCV 77.5 L MCH 24 L MCHC 31.4 L RDW 14.3 Plt Count 179 MPV 11.4 Neut % (Auto) 50.5 Lymph % (Auto) 39.9 [place] % (Auto) 7.1 Eos % (Auto) 1.7 Baso % (Auto) 0.3 Neut # (Auto) 3.2 Lymph # (Auto) 2.5 [place] # (Auto) 0.5 Eos # (Auto) 0.1 Baso # (Auto) 0.0 Immature Gran % 0.5 Nucleated RBC % 0.0 Immature Gran # 0.03 Nucleated RBCs # 0.00 Sodium 143 Potassium 4.1 Chloride 109 H Carbon Dioxide 26 Anion Gap 12.1 BUN 12 Creatinine 1.30 GFR Calculation 80 BUN/Creatinine Ratio 9.00 Glucose 117 H Calculated Osmolality 285.0 Calcium 8.5 Magnesium 2.0 - Diagnostic Findings Procedure: Chest x-ray: report reviewed by me - EKG EKG results: interpreted by me EKG shows: sinus rhythm Specialty Discharge - Follow Up or Referrals Follow up with: Tato Tavares MD [Physician] - (1-2 weeks. Please schedule patient for outpatient stress test (treadmill only to assess QTc during exercise) to be performed at [facility] within one week. Dr. Tavares to read and interpret. Follow-up appointment Dr. Tavares the following week. )
[2017-02-09] MEDS: DEXT 5% NACL 0.9% KCL 20 MEQ 20 MEQ/1,000 ML BAG IV SCH ×2 (04:10→13:21)
[2017-02-09 06:26] LABS: Risk Ratio 2.29; VLDL CHOLESTEROL 26.6 MG/DL
[2017-02-09] MEDS: ISOSORBIDE MONONITRATE 30 MG TABLET PO SCH (09:44)
[2017-02-09] MEDS: PANTOPRAZOLE 40 MG TABLET PO SCH (09:44)
[2017-02-09] MEDS: ASPIRIN EC 81 MG TABLET PO SCH (09:44)
[2017-02-09] MEDS: DILTIAZEM CD 120 MG CAPSULE PO SCH (09:48)
--- NOTE | 2017-02-09 11:06 | Discharge Summary ---
<Chon Rowe - Last Filed: 02/09/17 10:40> Hospital Course - Hospital Course Hospital Course: Patient is a 52-year-old male who was admitted to and as a hospital on 2016 after he was unable to stop vomiting. He noted a 2 week history of low substernal discomfort particularly in the mornings with periods of nausea. The patient was at work when he began vomiting and EMS was contacted. He began have chest pain after emesis and received sublingual nitroglycerin. Shortly after that, patient became unresponsive and was thought to be in ventricular rhythm received subsequent cardioversion. Cardiology was consulted and the patient underwent cardiac catheterization which found no coronary artery disease. Echo echocardiogram revealed a ejection fraction estimated at 55% with no significant valvular abnormalities. V/Q lung scan is read as limited but negative. Gallbladder ultrasound showed minimal thickening of the gallbladder wall without pericholecystic fluid or obvious stones or debris. Cardiology continued to follow patient and found no significant evidence of cardiac etiology for the patient's symptoms, and they have cleared him for discharge from cardiac standpoint. Patient had no further abdominal pain or emesis during his hospital stay. He is stable and has reached maximum benefit from this hospitalization. He is to follow-up with cardiology for an outpatient stress test, with PCP in 2-4 weeks. He will be given education on reduction of alcohol and drug usage upon discharge. - Time spent with patient Time with patient DS: Greater than 30 minutes Specialty Discharge - Follow Up or Referrals Follow up with: Tato Tavares MD [Physician] - (1-2 weeks. Please schedule patient for outpatient stress test (treadmill only to assess QTc during exercise) to be performed at [facility] within one week. Dr. Tavares to read and interpret. Follow-up appointment Dr. Tavares the following week. ) Discharge Plan - Discharge Data Disposition: Disch To Home/Self Care - Discharge Medications New Aspirin EC Tab 81 mg PO DAILY #0 tablet Diltiazem Cd Cap [Cardizem CD] 120 mg PO DAILY #30 capsule Isosorbide Mononitrate [Imdur] 30 mg PO DAILY #30 tablet - Follow Up or Referral Follow Up: Tato Tavares MD [Physician] - (1-2 weeks. Please schedule patient for outpatient stress test (treadmill only to assess QTc during exercise) to be performed at [facility] within one week. Dr. Tavares to read and interpret. Follow-up appointment Dr. Tavares the following week. ) - Forms/Instructions Instructions: Coronary Artery Disease (GEN), Left Heart Catheterization (DC), Abuse of Alcohol (DC) Exam - Constitutional Vitals: Period Temp Pulse Resp BP Sys/Yusuf Pulse Ox Last 24 Hr 97.0 F-99.0 F 60-71 14-20 110-138/59-77 97-100 Discharge Results Labs on day of discharge: Labs from last 24 hours 02/09/17 02/09/17 05:05 05:05 Hemoglobin A1c 5.4 Triglycerides 133 Cholesterol 174 LDL Cholesterol 81.0 VLDL Cholesterol 26.6 HDL Cholesterol 76 H Heart Disease Risk Ratio 2.29 DS: Provider Date of admission: 02/06/17 11:33 Primary care physician: . No PCP Attending physician on admission: Aman Walsh MD Consults: 02/07/17 10:28 Consult to Physician [CONS] Routine Comment: sudden cardiac Consulting Provider: Tato Tavares 02/08/17 10:03 Consult to Cardiac Rehabilitation [CONS] Routine Reason for Cardiac Rehabilitation: Risk Factor Modification Discharging clinician: Chon LINCOLN Expected date of discharge: 02/09/17 <Marcos Cueva - Last Filed: 02/09/17 13:01> Hospital Course - Hospital Course Hospital Course: Pt is scheduled to have stress test and ICD insertion done per Cardiology. Pt is also educated by Cards to wear life vest. Life vest is given to pt. Diagnosis - Discharge Diagnosis (1) Acute ST elevation myocardial infarction involving left anterior descending coronary artery Status: Acute (2) Cardiac arrest Status: Resolved (3) Ventricular fibrillation by electrocardiogram Status: Resolved Discharge Plan - Discharge Data Condition at Discharge: Stable Discharge Diet: heart healthy Activity: resume usual activities as tolerated Hygiene: no restrictions Weight Bearing at Discharge: weight bear as tolerated Driving: no restrictions Contact your physician if you experience:: Shortness of breath Exam - Constitutional Exam: GENERAL: NAD, AAOx3. HEENT: Pupils equally round and reactive to light, conjunctivae clear. TMs ghosh and translucent. Oropharynx pink, with moist mucous membranes. Normal lips, teeth and gums. NECK: Supple without mass. HEART: RRR, no murmur. CHEST: Normal shape, good air movement, no retractions. CV: RRR, no murmurs, 2+ peripheral pulses LUNGS: Clear to auscultation; no rales, rhonchi, or wheezes. ABDOMEN: Soft, nontender, and no hepatosplenomegaly. SKIN: No rash or edema. LYMPH: No anterior or posterior cervical, or supraclavicular lymphadenopathy. NEURO: No gross motor deficits noted.
[2017-02-09 16:21] VITALS: BP 129/70
--- NOTE | 2017-02-12 09:48 | Physician Query Form ---
CLICK EDIT DOCUMENT TO SELECT QUERY ANSWER --> OK --> SIGN Marlin Moralez RN, CCDS Certified Clinical Lavatory Attendant W) [phone] (f) [phone] [email or web address] PROVIDERS: Make your selection(s) from the choices in EACH section by typing an "x" and enter comments in the comment section. Please use your independent medical judgment in providing your response. This request does not imply that any particular answer is desired or expected. CLINICAL INDICATORS: (Providers should not edit this section) The medical record indicates that the patient was admitted with NV, cardiac arrest, "nausea and intense vomiting with potential volume contraction prior to the event". Creatinine of 2.0# and GFR of 48#; only on low dose of IVFs. Clarify which of the following most accurately represents the patient's renal status: (X ) Acute kidney injury (non-traumatic) ( ) Acute renal failure ( ) Acute renal failure with underlying Chronic Kidney Disease (CKD) - please provide stage below ( ) Acute renal failure with pathological renal lesion ( ) Acute renal failure with necrosis ( ) tubular ( ) medullary ( ) cortical ( ) CKD - please provide stage below ( ) End Stage Renal Disease ( ) Acute interstitial nephritis ( ) Hepatorenal syndrome ( ) Other, please specify: ( ) Clinically unable to determine Chronic Kidney Disease Stages Source: National Kidney [employer] Foundation ( ) Stage I (eGFR > or = 90) ( ) Stage II (eGFR 60 - 89) ( ) Stage III (eGFR 30 - 59) ( ) Stage IV (eGFR 15 - 29) ( ) Stage V (eGFR < 15 or dialysis) COMMENTS: Use of terms such as suspected, likely, or probable (associated with a specific diagnosis that is being evaluated, monitored, or treated as if it exists) are acceptable and can be restated in the discharge summary if not ruled out. MTDD
--- NOTE | 2017-03-27 14:22 | Physician Query Form ---
CLICK EDIT DOCUMENT TO SELECT QUERY ANSWER --> OK --> SIGN Marlin Moralez RN, CCDS Certified Clinical Managing Supervisor W) [phone] (f) [phone] [email or web address] PROVIDERS: Make your selection(s) from the choices in EACH section by typing an "x" and enter comments in the comment section. Please use your independent medical judgment in providing your response. This request does not imply that any particular answer is desired or expected. CLINICAL INDICATORS: (Providers should not edit this section) The medical record indicates that the patient was admitted with NV, cardiac arrest, "went into Vfib and was shocked once", Troponins ^ to 2.490 and TX is mentioned in the discharge diagnosis. "Cardiology continued to follow patient and found no significant evidence of cardiac etiology for the patient's symptoms " Based on the above, could you clarify the appropriate diagnosis, if significant , that supports the above abnormalities and additional evaluation, monitoring, and/or treatment rendered: ( ) TX was ruled out ( ) TX was confirmed ( x) Increased in Troponins was only due to the shock/ cardiac state while in VF ( ) Other, please specify: ( ) Clinically unable to determine COMMENTS: PLEASE ALSO DOCUMENT RESPONSE IN PROGRESS NOTES AND/OR DISCHARGE SUMMARY Use of terms such as suspected, likely, or probable (associated with a specific diagnosis that is being evaluated, monitored, or treated as if it exists) are acceptable and can be restated in the discharge summary if not ruled out. MTDD
== END 2017-02-09 16:15 | disposition home or self-care (01) | DRG 287 ==
LOC: EDUNIT# → EDBD → N.ED 10:38 → N.CL 10:39 → N.TELES 10:40
PROVIDERS: ADMIT Internal Medicine Cardiovascular Disease; ATTEND Internal Medicine Cardiovascular Disease
PROC: CLCCHCL (ICD-10-PCS; 2017-02-06 11:45)